=== PATIENT | male | born 1990 | race Caucasian/White ===

== ENCOUNTER 2020-09-27 13:32 | Emergency (ER) | payer OTHER ==
[~2020-09-27 13:32] MED LIST: ACETAMINOPHEN500 M1 PO; MIRALAX17 GM PO; MOTRIN600 MG PO; OXY-IR 5MG5 MG PO; PEPCID AC20 MG PO; STOOL SOFTENER100 MG PO
[2020-09-27 14:54] LABS: BASOPHIL 0.3 % (0-2); EOSINOPHIL 0.9 % (0-5); HCT 43.5 % (42.0-52.0); HGB 14.8 g/dl (13.2-18.0); MCH 30.7 pg (25.0-31.0); MCV 90.2 fL (78.0-100.0); MONOCYTE 8.2 % (0-12); MPV 11.4 fL (6.0-9.5); NEUTROPHIL 55.7 % (41-80); NRBC 0; PLT 214 K/uL (150-400); RBC 4.82 M/uL (4.70-6.00); RDW 11.8 % (11.5-14.0); WBC 5.8 K/uL (4.0-10.5)
[2020-09-27 15:13] LABS: ALBUMIN 3.7 g/dL (3.4-5.0); BILIRUBIN - TOTAL 0.7 mg/dL (0.2-1.0); BUN/CREAT RATIO (CALC) 15.6 RATIO; CREATININE 0.77 mg/dL (0.67-1.17); TOTAL PROTEIN 7.7 g/dL (6.4-8.2)
== END 2020-09-27 16:40 | disposition home or self-care (01) ==
LOC: FER 13:32
PROVIDERS: Emergency Medicine
DX: R55 Syncope and collapse (principal); J45.909 Unspecified asthma, uncomplicated; Z88.0 Allergy status to penicillin; Z91.048 Other nonmedicinal substance allergy status; Z87.19 Personal history of other diseases of the digestive system
CPT/HCPCS: 36415; 70450; 80053; 83735; 84484; 85025; 93005